=== PATIENT | female | born 1945 | race Caucasian/White ===

== ENCOUNTER 2020-12-29 14:41 | Emergency (ER) | payer MEDICARE ==
[~2020-12-29] VITALS: Ht 170.2 cm; Wt 76.4 kg
[2020-12-29 14:55] VITALS: BP 155/80
--- NOTE | 2020-12-29 15:11 | NUR ---
Pt to Xray via w/c.
--- NOTE | 2020-12-29 16:14 | NUR ---
Pt to CT via w/c.
== END 2020-12-29 17:15 | disposition home or self-care (01) ==
LOC: ER 14:41
DX: S09.90XA Unspecified injury of head, initial encounter (principal); S80.01XA Contusion of right knee, initial encounter; M25.561 Pain in right knee; E78.00 Pure hypercholesterolemia, unspecified; M19.90 Unspecified osteoarthritis, unspecified site; F32.9 Major depressive disorder, single episode, unspecified; Z90.49 Acquired absence of other specified parts of digestive tract; Z90.710 Acquired absence of both cervix and uterus; Z98.890 Other specified postprocedural states; W19.XXXA Unspecified fall, initial encounter; Y93.89 Activity, other specified; Y92.89 Other specified places as the place of occurrence of the external cause; Y99.8 Other external cause status
CPT/HCPCS: 29505; 70450; 70486; 73564; 99285

== ENCOUNTER 2022-06-26 17:47 | Emergency (ER) | payer MEDICARE ==
[~2022-06-26] VITALS: Ht 170.2 cm; Wt 76.4 kg
--- NOTE | 2022-06-26 18:43 | NUR ---
CRISTINA SANFORD AWARE OF PT PAIN LEVEL AND GAVE VERBAL ORDER FOR XRAY
--- NOTE | 2022-06-26 18:49 | NUR ---
PT TO XRAY
[2022-06-26] MEDS ORDERED: ondansetron/PF 4mg/2ml inj IV ONE (19:10)
[2022-06-26] MEDS ORDERED: morphine 4 MG/ML inj SYRINge IV ONE ×2 (19:10→21:25)
[2022-06-26] MEDS ORDERED: LIDOcaine 1% 30ml preserv. free vial IJ STA (19:38)
[2022-06-26] MEDS ORDERED: BUPIVAcaine 0.25% w/Epi /PF 30ml vial SQ ONE (19:40)
[2022-06-26 19:59] LABS: BASOPHILS # (AUTO) 0.1 X10'3 (0-0.2); BASOPHILS % (AUTO) 0.7 % (0-1); EOSINOPHILS # (AUTO) 0.2 X10'3 (0-0.9); EOSINOPHILS % (AUTO) 2.1 % (0-6); HEMATOCRIT 34.5 % (35.0-45.0); HEMOGLOBIN 11.4 g/dl (12.0-16.0); LYMPHOCYTES # (AUTO) 1.1 X10'3 (1.1-4.8); LYMPHOCYTES % (AUTO) 10.4 % (21-51); MEAN CORPUSCULAR HEMOGLOBIN 29.2 PG (27.0-31.0); MEAN CORPUSCULAR HGB CONC 33.2 g/dL (33.0-36.5); MEAN CORPUSCULAR VOLUME 87.8 FL (78-98); MEAN PLATELET VOLUME 8.8 FL (7.4-10.4); MONOCYTES # (AUTO) 0.9 X10'3 (0-0.9); MONOCYTES % (AUTO) 8.9 % (2-12); NEUTROPHILS # (AUTO) 8.1 X10'3 (1.8-7.7); NEUTROPHILS % (AUTO) 77.9 % (42-75); PLATELET COUNT 260 X10'3 (140-440); RED BLOOD COUNT 3.93 X10'6 (4.20-5.60); RED CELL DISTRIBUTION WIDTH 13.8 % (11.5-14.5); WHITE BLOOD COUNT 10.4 X10'3 (4.5-11.0)
--- NOTE | 2022-06-26 20:04 | NUR ---
SANTIAGO SALAS (SON) AND GIRLFRIEND BERENICE WILL DIRECTOR OF RETAIL MARKETING PATIENT WHEN THE TIME COMES [phone]
[2022-06-26 20:17] LABS: ALANINE AMINOTRANSFERASE 15 U/L (12-78); ALBUMIN 3.7 G/DL (3.4-5.0); ALBUMIN/GLOBULIN RATIO 1.1 (1.1-1.5); ALKALINE PHOSPHATASE 64 IU/L (46-116); ANION GAP 7 (8-16); ASPARTATE AMINO TRANSFERASE 16 U/L (10-37); BILIRUBIN,TOTAL 0.3 MG/DL (0.1-1.0); BLOOD UREA NITROGEN 15 MG/DL (7-18); BUN/CREATININE RATIO 24.6 (6.6-38.0); CALCIUM 8.7 MG/DL (8.5-10.1); CHLORIDE 105 MMOL/L (99-107); CREATININE 0.61 MG/DL (0.40-0.90); GLUCOSE 132 MG/DL (70-104); POTASSIUM 3.1 MMOL/L (3.5-5.1); SODIUM 141 MMOL/L (135-145); TOTAL CARBON DIOXIDE 29.3 MMOL/L (24-32); TOTAL PROTEIN 7.2 G/DL (6.4-8.2); eGFR > 90 ML/MIN
--- NOTE | 2022-06-26 20:32 | NUR ---
Jimy Ta (other son in [place]) called for update from RN [phone]
[2022-06-26] MEDS ORDERED: ketamine 10mg/ml 20ml inj vial IV ONE (20:40)
[2022-06-26] MEDS ORDERED: POTASSIUM BICARB 20meq eff tab 20 MEQ TABLET.EFF PO ONE (20:40)
[2022-06-26] MEDS ORDERED: ketamine 50 mg/ml 10ml vial IV ONE (20:40)
--- NOTE | 2022-06-26 21:47 | NUR ---
Andre Raman (granddaughter) [phone]
--- NOTE | 2022-06-26 22:09 | NUR ---
Attempted to call pt's son Domenic Smith to hot die picker patient. No answer. RN left voicemail with hospital phone number
[2022-06-26] MEDS ORDERED: MORP15TA PO (22:20)
[2022-06-26] MEDS ORDERED: acetaminophen 325mg tablet PO ONE (22:55)
[2022-06-26 23:43] VITALS: BP 158/75
== END 2022-06-26 23:44 | disposition home or self-care (01) ==
LOC: ER 17:48
DX: S42.291A Other displaced fracture of upper end of right humerus, initial encounter for closed fracture (principal); S52.531A Colles' fracture of right radius, initial encounter for closed fracture; E78.00 Pure hypercholesterolemia, unspecified; M19.90 Unspecified osteoarthritis, unspecified site; M81.0 Age-related osteoporosis without current pathological fracture; Z90.49 Acquired absence of other specified parts of digestive tract; Z90.710 Acquired absence of both cervix and uterus; Z79.899 Other long term (current) drug therapy; W07.XXXA Fall from chair, initial encounter; Z91.81 History of falling; Y93.89 Activity, other specified; Y92.89 Other specified places as the place of occurrence of the external cause; Y99.8 Other external cause status
CPT/HCPCS: 20552; 36415; 73010; 73030; 73090; 73100; 73110; 73130; 80053; 85025; 94799; 96374; 96375; 96376; 99285; A6223; J2270; J2405; J3490; 99152; 99153; A4615